=== PATIENT | male | born 1970 | race Caucasian/White ===

== ENCOUNTER 2016-07-17 00:41 | Emergency (ER) | payer OTHER ==
[~2016-07-17 00:41] MED LIST: AMOXIL PO; ANUSOL30 G1 PR; CLARITIN PO; COLACE PO; FLEXERIL10 MG PO; MEDROL4 MG/DOSE- PO; NO MEDICATIONS; NUPERCAINAL 1%30 G1 PR; PREDNISONE PO; PROMETHAZINE DM PO; STOOL SOFTENER; VOLTAREN75 MG PO
[2016-07-17] MEDS ORDERED: NO MEDICATIONS (00:53)
== END 2016-07-17 01:50 | disposition home or self-care (01) ==
LOC: SED 00:41
DX: R30.0 Dysuria (principal); F41.9 Anxiety disorder, unspecified; Z86.19 Personal history of other infectious and parasitic diseases; Z98.890 Other specified postprocedural states; Z90.5 Acquired absence of kidney; Z88.5 Allergy status to narcotic agent
CPT/HCPCS: 99282